=== PATIENT | male | born 1975 | race African-American/Black ===

== ENCOUNTER 2016-12-01 06:34 | Emergency (ER) | payer MEDICAID, OTHER | END 2016-12-01 06:42 | disposition left against medical advice (07) | LOC: FB.ED 06:34 | DX: Z53.21 Procedure and treatment not carried out due to patient leaving prior to being seen by health care provider (principal) | CPT/HCPCS: 99281 ==

== ENCOUNTER 2016-12-14 04:46 | Emergency (ER) | payer SELFPAY ==
[2016-12-14] MEDS ORDERED: Acetaminophen/HYDROcodone 325-5 MG Tab PO ONE (05:09)
[2016-12-14] MEDS ORDERED: Amoxicillin/Clavulanate K 875-125 MG Tab PO ONE (05:10)
[2016-12-14] MEDS ORDERED: NEOMY EARLF STA (05:12)
[2016-12-14] MEDS ORDERED: COLISTIN EARLF STA (05:12)
[2016-12-14] MEDS ORDERED: [UNRECOGNIZED DRUG - OTHER] EARLF STA (05:12)
[2016-12-14] MEDS ORDERED: Hydrocortisone/Neomycin/Polymyxin B Otic Susp 10 ML Bottle ONE (05:17)
--- NOTE | 2016-12-14 05:22 | EDM.PDOC ---
ED HPI ENT - General Chief Complaint: ENT Problem Stated Complaint: TOOTHACHE Time Seen by Provider: 12/14/16 04:50 Source: Reports: Patient, Family History Limitations: Reports: No limitations - History of Present Illness INITIAL COMMENTS - FREE TEXT/NARRATIVE: 41 years b m came to the ed because of left earpain and tootache for several days. Symptom Onset Date: 11/24/16 Symptom Onset Time: 08:00 Timing/Duration: Reports: Week(s): Severity: mild Location: Reports: left Ear Improves with: Reports: None Worsens with: Reports: None Associated symptoms: Reports: denies other symptoms Treatment(s) DIRECTOR WHOLESALE: Reports: Acetaminophen, NSAIDS - Related Data Allergies/ADRs: Allergies Allergy/AdvReac Type Severity Reaction Status Date / Time tramadol Allergy Rash Verified 12/01/16 06:38 Home Meds: Home Meds Naproxen Sodium 550 mg PO Q8HR PRN #20 tablet 04/23/16 [Rx] Amoxicillin/Potassium Clav [Augmentin 875-125 Tablet] 1 each PO BID #20 tablet 12/14/16 [Rx] Hydrocodone/Acetaminophen [Tenmile 5-325 Tablet] 1 each PO Q4H PRN #3 tablet 12/14 [Rx] Past Medical History - Past Health History Medical/Surgical History: Denies Medical/Surgical History HEENT History: Reports: None Cardiovascular History: Reports: None Respiratory History: Reports: None Gastrointestinal History: Reports: None Genitourinary History: Reports: None Musculoskeletal History: Reports: Other (see below) Other Musculoskeletal History: Previous back pain Neurological History: Reports: None Psychiatric History: Reports: None Endocrine/Metabolic History: Reports: None Hematologic History: Reports: None Immunologic History: Reports: None Oncologic (Cancer) History: Reports: None Dermatologic History: Reports: None - Infectious Disease History Infectious Disease History: Reports: None - Past Surgical History Head Surgeries/Procedures: Reports: None Respiratory Surgical History: Reports: None GI Surgical History: Reports: None Male Surgical History: Reports: None Neurological Surgical History: Reports: None Oncologic Surgical History: Reports: None Social & Family History - Family History Family Medical History: Noncontributory - Tobacco Use Smoking Status *Q: Current Every Day Smoker Years of Tobacco use: 25 Packs/Tins Daily: 1 - Caffeine Use Caffeine Use: Reports: None - Alcohol Use Days Per Week of Alcohol Use: 0 Number of Drinks Per Day: 3 Total Drinks Per Week: 0 - Recreational Drug Use Recreational Drug Use: No Drug Use in Last 12 Months: Yes Recreational Drug Type: Reports: Marijuana/Hashish Recreational Drug Use Frequency: Weekly ED ROS ENT - Review of Systems Review Of Systems: See Below Constitutional: Reports: no symptoms HEENT: Reports: Ear discharge, Ear pain, Other (toothache) Respiratory: Reports: No Symptoms Cardiovascular: Reports: No symptoms Endocrine: Reports: no symptoms GI/Abdominal: Reports: No symptoms : Reports: no symptoms Musculoskeletal: Reports: no symptoms Skin: Reports: no symptoms Neurological: Reports: No Symptoms Hematologic/Lymphatic: Reports: no symptoms Immunologic: Reports: no symptoms ED EXAM, ENT - Physical Exam Exam: See Below Exam Limited By: No limitations General Appearance: alert, WD/WN, mild distress Eye Exam: bilateral eye: normal inspection Ears: normal external exam, canal discharge, canal material, canal swelling, TM bulging, TM obscured by cerumen Nose: normal inspection, normal mucousa, no blood Mouth/Throat: Normal inspection, Normal gums, Normal lips Head: atraumatic, normocephalic Neck: normal inspection, supple, non-tender, full range of motion Respiratory/Chest: no respiratory distress, lungs clear, normal breath sounds, no accessory muscle use Cardiovascular: normal peripheral pulses, regular rate, rhythm, no edema GI/Abdominal: normal bowel sounds, soft, non tender, no organomegaly, no distention, no abnormal bruit (Male) Exam: Deferred Rectal (Males) Exam: Deferred Back: normal inspection, full range of motion Extremities: normal inspection, normal range of motion Neurological: alert, oriented, CN II-XII intact, normal cognition Psychiatric: normal affect, normal mood Skin: Warm, Dry, Intact, Normal color Lymphatic: no adenopathy Course - Vital Signs Text/Narrative:: 41 years b m came to the ed because of left earpain and tootache for several days. PE: Poor dentition, left sided EM/OE Impression: OM/OE poor dentition Tx: Cortisporine, Augmentin, Vicodin Reexam: Improved Plan: D/C with instructions Last Recorded V/S: Last Vital Signs Temp 36.4 C 12/14/16 04:50 Pulse 72 12/14/16 04:50 Resp 17 12/14/16 04:50 BP 130/89 12/14/16 04:50 Pulse Ox 100 12/14/16 04:50 - Orders/Labs/Meds Meds: Medications Discontinued Medications Generic Name Dose Route Start Last Admin Trade Name Freq PRN Reason Stop Dose Admin Hydrocodone Bitart/Acetaminophen 1 tab 12/14/16 05:09 12/14/16 05:15 Tenmile 325-5 Mg PO 12/14/16 05:10 1 tab ONETIME ONE Administration Amoxicillin/Clavulanate Potassium 1 tab 12/14/16 05:10 12/14/16 05:14 Augmentin 875 Mg/125 Mg PO 12/14/16 05:11 1 tab ONETIME ONE Administration Hydrocortisone/Neomycin/Colistin 0.1 ml 12/14/16 05:12 Coly-Mycin S Ear Drops EARLF 12/14/16 05:13 ONETIME STA Departure - Departure Time of Disposition: 05:17 Disposition: Home, Self-Care 01 Condition: good Clinical Impression: Otitis media Qualifiers: Otitis media type: suppurative Laterality: left Chronicity: acute Recurrence: recurrent Spontaneous tympanic membrane rupture: without spontaneous rupture Qualified Code(s): H66.005 - Acute suppurative otitis media without spontaneous rupture of ear drum, recurrent, left ear Prescriptions: Amoxicillin/Potassium Clav [Augmentin 875-125 Tablet] 1 each PO BID #20 tablet Hydrocodone/Acetaminophen [Tenmile 5-325 Tablet] 1 each PO Q4H PRN #3 tablet PRN Reason: for severe pain only Referrals: PCP,None [Primary Care Provider] - Forms: ED Department Discharge Additional Instructions: Please f/u with your dentist today, please f/u with your PMD in next 1-3 days. Please came back to the ed if symptoms get worse acutely
[2016-12-14 05:40] VITALS: BP 132/75
== END 2016-12-14 05:30 | disposition home or self-care (01) ==
LOC: FB.ED 04:46
DX: H66.005 Acute suppurative otitis media without spontaneous rupture of ear drum, recurrent, left ear (principal); F17.210 Nicotine dependence, cigarettes, uncomplicated; Z88.8 Allergy status to other drugs, medicaments and biological substances
CPT/HCPCS: 99282; A9270; 99283

== ENCOUNTER 2018-03-12 12:42 | Emergency (ER) | payer BC ==
--- NOTE | 2018-03-12 13:22 | EDM.PDOC ---
ED HPI GENERAL MEDICAL PROBLEM - General Chief Complaint: Gastrointestinal Problem Stated Complaint: VOMITTING BLOOD Time Seen by Provider: 03/12/18 12:42 Source of Information: Reports: Patient History Limitations: Reports: No Limitations - History of Present Illness INITIAL COMMENTS - FREE TEXT/NARRATIVE: 43 y.o.b. male came to the ed after he vomited bright blood while going to work this am. Pt denied ETOH or liver issues, he is in his usual state of health. No N/V/D or any other acute medical issues. BP 113/74 pulse ox 100% RR 18 Temp 37.1 pulse 76 Onset: Today Onset Date: 03/12/18 Onset Time: 08:00 Duration: Hour(s):, Resolved Prior to Arrival Location: Reports: Abdomen Quality: Reports: Dull Severity: Mild Improves with: Reports: None Worsens with: Reports: None Context: Reports: Other (no symptoms now) Associated Symptoms: Reports: No Other Symptoms - Related Data Allergies Allergy/AdvReac Type Severity Reaction Status Date / Time tramadol Allergy Rash Verified 03/12/18 13:19 Home Meds: Home Meds Naproxen Sodium 550 mg PO Q8HR PRN #20 tablet 04/23/16 [Rx] Famotidine [Pepcid] 40 mg PO DAILY #10 tablet 03/12/18 [Rx] Past Medical History - Past Health History Medical/Surgical History: Denies Medical/Surgical History HEENT History: Reports: None Cardiovascular History: Reports: None Respiratory History: Reports: None Gastrointestinal History: Reports: None Genitourinary History: Reports: None Musculoskeletal History: Reports: Other (See Below) Other Musculoskeletal History: Previous back pain Neurological History: Reports: None Psychiatric History: Reports: None Endocrine/Metabolic History: Reports: None Hematologic History: Reports: None Immunologic History: Reports: None Oncologic (Cancer) History: Reports: None Dermatologic History: Reports: None - Infectious Disease History Infectious Disease History: Reports: None - Past Surgical History Head Surgeries/Procedures: Reports: None Respiratory Surgical History: Reports: None GI Surgical History: Reports: None Male Surgical History: Reports: None Neurological Surgical History: Reports: None Oncologic Surgical History: Reports: None Social & Family History - Family History Family Medical History: Noncontributory - Caffeine Use Caffeine Use: Reports: None ED ROS GENERAL - Review of Systems Review Of Systems: See Below Constitutional: Reports: No Symptoms HEENT: Reports: No Symptoms Respiratory: Reports: No Symptoms Cardiovascular: Reports: No Symptoms Endocrine: Reports: No Symptoms GI/Abdominal: Reports: No Symptoms : Reports: No Symptoms Musculoskeletal: Reports: No Symptoms Skin: Reports: No Symptoms Neurological: Reports: No Symptoms Psychiatric: Reports: No Symptoms Hematologic/Lymphatic: Reports: No Symptoms Immunologic: Reports: No Symptoms ED EXAM, GI/ABD - Physical Exam Exam: See Below Exam Limited By: No Limitations General Appearance: Alert, WD/WN, No Apparent Distress Eyes: Bilateral: Normal Appearance Ears: Normal External Exam, Normal Canal, Hearing Grossly Normal, Normal TMs Nose: Normal Inspection, Normal Mucosa, No Blood Throat/Mouth: Normal Inspection, Normal Lips, Normal Teeth, Normal Gums, Normal Oropharynx, Normal Voice, No Airway Compromise, Other (no blood tngered tongue) Head: Atraumatic, Normocephalic Neck: Normal Inspection, Supple, Non-Tender, Full Range of Motion Respiratory/Chest: No Respiratory Distress, Lungs Clear, Normal Breath Sounds, No Accessory Muscle Use, Chest Non-Tender Cardiovascular: Normal Peripheral Pulses, Regular Rate, Rhythm, No Edema, No Gallop, No JVD, No Murmur, No Rub GI/Abdominal Exam: Normal Bowel Sounds, Soft (Male) Exam: Deferred Rectal (Males) Exam: Deferred Back Exam: Normal Inspection, Full Range of Motion Extremities: Normal Inspection, Normal Range of Motion, Non-Tender, No Pedal Edema Neurological: Alert, Oriented, CN II-XII Intact, Normal Cognition, Normal Gait, Normal Reflexes, No Motor/Sensory Deficits Psychiatric: Normal Affect, Normal Mood Skin Exam: Warm, Dry, Intact, Normal Color, No Rash Lymphatic: No Adenopathy Course - Vital Signs Text/Narrative:: 43 y.o.b. male came to the ed after he vomited bright blood while going to work this am. Pt denied ETOH or liver issues, he is in his usual state of health. No N/V/D or any other acute medical issues. BP 113/74 pulse ox 100% RR 18 Temp 37.1 pulse 76 PE: WNWD Black Male Labs: Opioids and Marrijuana positive Impression: Gastritis Tx: Pepcid Reexam: Pt was in in his usual sate of health while here in the ED, Requesting a sick leave for today Plan: D/C with instructions Last Recorded V/S: Last Vital Signs Temp 37.1 C 03/12/18 12:55 Pulse 71 03/12/18 12:55 Resp 16 03/12/18 12:55 BP 113/74 03/12/18 12:55 Pulse Ox 100 03/12/18 12:55 - Orders/Labs/Meds Orders: Active Orders 24 hr Category Date Time Status DRUG SCREEN, URINE ALERE [URCHEM] Stat Lab 03/12/18 13:42 Ordered Labs: Laboratory Tests 03/12/18 03/12/18 03/12/18 Range/Units 13:30 13:30 13:30 WBC 6.1 (4.5-12.0) X10-3/uL RBC 4.78 (4.30-5.75) x10(6)uL Hgb 14.7 (11.5-15.5) g/dL Hct 44.1 (30.0-51.3) % MCV 92.1 (80-96) fL MCH 30.8 (27.7-33.6) pg MCHC 33.4 (32.2-35.4) g/dL RDW 12.5 (11.5-15.5) % Plt Count 196 (125-369) X10(3)uL MPV 8.3 (7.4-10.4) fL Neut % (Auto) 61.9 (46-82) % Lymph % (Auto) 26.2 (13-37) % Emery % (Auto) 9.7 (4-12) % Eos % (Auto) 1 (1.0-5.0) % Baso % (Auto) 1 (0-2) % Neut # (Auto) 3.8 (1.6-8.3) # Lymph # (Auto) 1.6 (0.6-5.0) # Emery # (Auto) 0.6 (0.0-1.3) # Eos # (Auto) 0.1 (0.0-0.8) # Baso # (Auto) 0.0 (0.0-0.2) # Sodium 135 (135-145) mmol/L Potassium 4.2 (3.5-5.3) mmol/L Chloride 102 (100-110) mmol/L Carbon Dioxide 28 (21-32) mmol/L BUN 11 (7-18) mg/dL Creatinine 0.9 (0.70-1.30) mg/dL Est Cr Clr Drug Dosing 98.95 mL/min Estimated GFR (MDRD) > 60 (>60) BUN/Creatinine Ratio 12.2 (9-20) Glucose 96 (80-116) mg/dL Calcium 9.3 (8.6-10.2) mg/dL Total Bilirubin 0.6 (0.1-1.3) mg/dL Direct Bilirubin 0.12 (0.10-0.20) mg/dL AST 49 H (5-25) IU/L ALT 94 H (12-36) U/L Alkaline Phosphatase 90 (56-112) IU/L Total Protein 8.4 H (6.0-8.0) g/dL Albumin 3.7 (3.5-5.2) g/dL Amylase 78 (25-115) U/L Urine Opiates Screen (NEGATIVE) Ur Oxycodone Screen (NEGATIVE) Ur Propoxyphene Screen (NEGATIVE) Ur Barbituates Screen (NEGATIVE) Ur Tricyclics Screen (NEGATIVE) Ur Phencyclidine Scrn (NEGATIVE) Ur Amphetamine Screen (NEGATIVE) Urine MDMA Screen (NEGATIVE) U Benzodiazepines Scrn (NEGATIVE) U Cocaine Metab Screen (NEGATIVE) U Marijuana (THC) Screen (NEGATIVE) 03/12/18 Range/Units 13:42 WBC (4.5-12.0) X10-3/uL RBC (4.30-5.75) x10(6)uL Hgb (11.5-15.5) g/dL Hct (30.0-51.3) % MCV (80-96) fL MCH (27.7-33.6) pg MCHC (32.2-35.4) g/dL RDW (11.5-15.5) % Plt Count (125-369) X10(3)uL MPV (7.4-10.4) fL Neut % (Auto) (46-82) % Lymph % (Auto) (13-37) % Emery % (Auto) (4-12) % Eos % (Auto) (1.0-5.0) % Baso % (Auto) (0-2) % Neut # (Auto) (1.6-8.3) # Lymph # (Auto) (0.6-5.0) # Emery # (Auto) (0.0-1.3) # Eos # (Auto) (0.0-0.8) # Baso # (Auto) (0.0-0.2) # Sodium (135-145) mmol/L Potassium (3.5-5.3) mmol/L Chloride (100-110) mmol/L Carbon Dioxide (21-32) mmol/L BUN (7-18) mg/dL Creatinine (0.70-1.30) mg/dL Est Cr Clr Drug Dosing mL/min Estimated GFR (MDRD) (>60) BUN/Creatinine Ratio (9-20) Glucose (80-116) mg/dL Calcium (8.6-10.2) mg/dL Total Bilirubin (0.1-1.3) mg/dL Direct Bilirubin (0.10-0.20) mg/dL AST (5-25) IU/L ALT (12-36) U/L Alkaline Phosphatase (56-112) IU/L Total Protein (6.0-8.0) g/dL Albumin (3.5-5.2) g/dL Amylase (25-115) U/L Urine Opiates Screen Positive H (NEGATIVE) Ur Oxycodone Screen Negative (NEGATIVE) Ur Propoxyphene Screen Negative (NEGATIVE) Ur Barbituates Screen Negative (NEGATIVE) Ur Tricyclics Screen Negative (NEGATIVE) Ur Phencyclidine Scrn Negative (NEGATIVE) Ur Amphetamine Screen Negative (NEGATIVE) Urine MDMA Screen Negative (NEGATIVE) U Benzodiazepines Scrn Negative (NEGATIVE) U Cocaine Metab Screen Negative (NEGATIVE) U Marijuana (THC) Screen Positive H (NEGATIVE) Meds: Medications Discontinued Medications Generic Name Dose Route Start Last Admin Trade Name Freq PRN Reason Stop Dose Admin Famotidine 20 mg 03/12/18 13:23 03/12/18 13:39 Pepcid PO 03/12/18 13:24 20 mg ONETIME ONE Administration Departure - Departure Time of Disposition: 14:56 Disposition: Home, Self-Care 01 Condition: Good Clinical Impression: Positive urine drug screen Gastritis Qualifiers: Gastritis type: superficial Chronicity: unspecified Gastritis bleeding: with bleeding Qualified Code(s): K29.31 - Chronic superficial gastritis with bleeding - Discharge Information Prescriptions: Famotidine [Pepcid] 40 mg PO DAILY #10 tablet Referrals: PCP,None [Primary Care Provider] - Forms: ED Department Discharge, ED Return to Work/School Form Additional Instructions: Please avoid Marijuana, please take pepsid as recommended, please f/u with your PMD, come back to the ED if your symptoms get worse acutely - My Orders Last 24 Hours: My Active Orders 03/12/18 13:42 DRUG SCREEN, URINE ALERE [URCHEM] Stat - Assessment/Plan Last 24 Hours: My Active Orders 03/12/18 13:42 DRUG SCREEN, URINE ALERE [URCHEM] Stat
[2018-03-12] MEDS ORDERED: Famotidine 20 MG Tab PO ONE (13:23)
[2018-03-12 13:33] VITALS: BP 113/74
== END 2018-03-12 15:03 | disposition home or self-care (01) ==
LOC: FB.ED 12:42
DX: K29.31 Chronic superficial gastritis with bleeding (principal); Z88.6 Allergy status to analgesic agent
CPT/HCPCS: 36415; 80048; 80076; 80305; 82150; 85025; 99284; A9270

== ENCOUNTER 2018-04-30 15:50 | Emergency (ER) | payer MEDICAID, OTHER ==
[2018-04-30] MEDS ORDERED: Ketorolac 30 MG/ML SDV IM ONE (16:29)
[2018-04-30 17:14] VITALS: BP 144/95
--- NOTE | 2018-04-30 23:32 | EDM.PDOC ---
ED HPI GENERAL MEDICAL PROBLEM - General Chief Complaint: Chest Pain Stated Complaint: chest pain Time Seen by Provider: 04/30/18 16:10 Source of Information: Reports: Patient, Significant Other History Limitations: Reports: No Limitations, Other - History of Present Illness Onset: Today Onset Date: 04/30/18 Onset Time: 05:00 Location: Reports: Other (LPOW BACK PAIN) Quality: Reports: Ache, Sharp Severity: Severe Improves with: Reports: None Worsens with: Reports: Movement Associated Symptoms: Reports: No Other Symptoms, Chest Pain (CHEST WALL PAIN IS READILY DEMONSTRATED), Other Rt chest and lower back Pain Score (Numeric/FACES): 10 - Related Data Allergies Allergy/AdvReac Type Severity Reaction Status Date / Time tramadol Allergy Rash Verified 04/30/18 16:13 Home Meds: Home Meds Naproxen Sodium 550 mg PO Q8HR PRN #20 tablet 04/23/16 [Rx] Famotidine [Pepcid] 40 mg PO DAILY #10 tablet 03/12/18 [Rx] Past Medical History - Past Health History Medical/Surgical History: Denies Medical/Surgical History HEENT History: Reports: None Cardiovascular History: Reports: None Respiratory History: Reports: None Gastrointestinal History: Reports: None Genitourinary History: Reports: None Musculoskeletal History: Reports: Back Pain, Chronic, Other (See Below) Other Musculoskeletal History: Previous back pain Neurological History: Reports: None Psychiatric History: Reports: None Endocrine/Metabolic History: Reports: None Hematologic History: Reports: None Immunologic History: Reports: None Oncologic (Cancer) History: Reports: None Dermatologic History: Reports: None - Infectious Disease History Infectious Disease History: Reports: None - Past Surgical History Head Surgeries/Procedures: Reports: None Respiratory Surgical History: Reports: None GI Surgical History: Reports: None Male Surgical History: Reports: None Neurological Surgical History: Reports: None Oncologic Surgical History: Reports: None Social & Family History - Family History Family Medical History: Noncontributory - Tobacco Use Smoking Status *Q: Current Every Day Smoker Years of Tobacco use: 30 Packs/Tins Daily: 1 - Caffeine Use Caffeine Use: Reports: Soda - Recreational Drug Use Recreational Drug Use: No ED ROS GENERAL - Review of Systems Review Of Systems: See Below Constitutional: Reports: No Symptoms HEENT: Reports: No Symptoms Respiratory: Reports: No Symptoms Cardiovascular: Reports: Chest Pain Endocrine: Reports: No Symptoms GI/Abdominal: Reports: No Symptoms : Reports: No Symptoms Musculoskeletal: Reports: Other (HE WAIL LOUDLY THAT HE HAS LOW BACK PAIN AND SEVERE CHEST PAIN WHILE HE IS LAYING DELL POSITIO ) Neurological: Reports: No Symptoms Psychiatric: Reports: No Symptoms Hematologic/Lymphatic: Reports: No Symptoms Immunologic: Reports: No Symptoms ED EXAM, GENERAL - Physical Exam Exam: See Below Free Text/Narrative:: HE IS LAYING IN A RIGHT POSITION, AND EXHIBITS SEVERE ANODYNIA- ANY TOUCH OF INSIGNIFICANCE WITHOUT PRESSURE RESULTS IN A LOUD GROAN OF DISPLEASURE , F ___ WORDS, AND CLAIM OF SEVERE PAIN EVEN WHEN NO STRUCTURE EXPERIENCES ANY PRESSURE ON SUPERFICIAL PALPATION. Exam Limited By: No Limitations General Appearance: Alert, Moderate Distress Eye Exam: Bilateral Eye: Normal Fundi, Normal Inspection, PERRL Ears: Normal External Exam, Normal Canal, Normal TMs Nose: Normal Inspection, Normal Mucosa Throat/Mouth: Normal Inspection, Normal Lips, Normal Teeth, Normal Gums, Normal Oropharynx, Normal Voice, No Airway Compromise Head: Atraumatic Neck: Normal Inspection Respiratory/Chest: No Respiratory Distress Cardiovascular: Normal Peripheral Pulses, Regular Rate, Rhythm, No Edema, No Gallop, No JVD, No Murmur, No Rub, Other (SEVERLY DETESTS MY PALPATING THE LEFT PARATERANADN LEFT COSTOCHONDRAL CHEST WALL WITH VERY LOUD GROANS AND MALE SCREAMS AND F ___ WORDS) Peripheral Pulses: 1+: Brachial (R), Radial (L), Dorsalis Pedis (L), Dorsalis Pedis (R) GI/Abdominal: Normal Bowel Sounds, Soft, Non-Tender, No Organomegaly, No Distention, No Abnormal Bruit, No Mass (Male) Exam: No Hernia, Normal Inspection Back Exam: Normal Inspection, Other (WITH MINIMAL PALPATION PRESSSUREWAILS ABPOUT SEVER LOW AND MID THORACIC WELL LUMBAR PAIN) Extremities: Normal Inspection, Normal Range of Motion, Non-Tender Psychiatric: Other (ANODYNIA AND VERY INAPPROPRIATELY INTOLERANT OF GENTAL PALPATION OF ANY ANTERIOR LEFT CHEST WALL OR MID AND LUMBAR SPINE) Skin Exam: Warm (R ) Course - Vital Signs Last Recorded V/S: Last Vital Signs Temp 37.2 C 04/30/18 16:15 Pulse 80 04/30/18 16:15 Resp 17 04/30/18 16:15 BP 144/95 H 04/30/18 16:15 Pulse Ox 97 04/30/18 16:15 - Orders/Labs/Meds Orders: Active Orders 24 hr Category Date Time Status EKG 12 Lead [EK] Routine Ther 04/30/18 16:26 Ordered Labs: Laboratory Tests 04/30/18 04/30/18 Range/Units 16:35 16:35 Troponin I < 0.017 L (<0.017-0.056) ng/mL C-Reactive Protein 0.2 L (0.5-0.9) mg/dL Meds: Medications Discontinued Medications Generic Name Dose Route Start Last Admin Trade Name Ruth Ann PRN Reason Stop Dose Admin Ketorolac Tromethamine 60 mg 04/30/18 16:29 04/30/18 16:45 Toradol IM 04/30/18 16:30 60 mg ONETIME ONE Administration Departure - Departure Time of Disposition: 16:50 Disposition: Against Medical Advice 07 Condition: Good Clinical Impression: Allodynia, Costochondritis, Thoracic spine pain, Lumbar back pain, Chest wall pain Instructions: Back Pain, Adult Referrals: PCP,None [Primary Care Provider] - Forms: ED Department Discharge Additional Instructions: SOME ONE WILL BE CALLING YOUR FROM [facility] TO HAVE A MRI OF YOUR HEAD COMPLETED EITHER 05/01 OR 05/02/[address] RECINOS, THE NEUROLOGIST FROM [place], SUGGESTED GETTING AN ECHO OF THE HEART I HAVE SPOKEN TO DR AYALA AND HE IS VERY HAPPY TO CALL YOU ABOUT THE RESULT OF THE MRI AND THE ECHO I HAVE SCHEDULED THE ECHO OF THE HEART TAKE ONE BABY ASPIRIN DAILY RETURN TO ED IF YOU HAVE WORSE SYMPTOMS. - My Orders Last 24 Hours: My Active Orders 04/30/18 16:26 EKG 12 Lead [EK] Routine - Assessment/Plan Last 24 Hours: My Active Orders 04/30/18 16:26 EKG 12 Lead [EK] Routine
== END 2018-04-30 16:52 | disposition left against medical advice (07) ==
LOC: FB.ED 15:50
DX: M94.0 Chondrocostal junction syndrome [Tietze] (principal); M54.6 Pain in thoracic spine; M54.5 Low back pain; R07.89 Other chest pain; F17.210 Nicotine dependence, cigarettes, uncomplicated; Z88.5 Allergy status to narcotic agent
CPT/HCPCS: 36415; 84484; 86140; 93005; 99283; J1885

== ENCOUNTER 2018-11-13 13:47 | Emergency (ER) | payer MEDICAID ==
[2018-11-13] MEDS ORDERED: Ketorolac 60 MG/2 ML SDV IM ONE (13:59)
--- NOTE | 2018-11-13 14:01 | EDM.PDOC ---
ED HPI GENERAL MEDICAL PROBLEM - General Stated Complaint: LEFT RIB PAIN Time Seen by Provider: 11/13/18 13:47 Source of Information: Reports: Patient, Family History Limitations: Reports: No Limitations - History of Present Illness INITIAL COMMENTS - FREE TEXT/NARRATIVE: 43 y.o.w. m came to the ed after he woke up with severe left sided chest wall pain with inspiration/expiration, no trauma, no SOB no F/C no other acute medical issues. BP 138/68 Pulse ox 98% on RA, RR 18 Temp 36.8 pulse 88 Onset Date: 11/13/18 Onset Time: 06:00 Duration: Hour(s):, Intermittent Location: Reports: Chest Quality: Reports: Ache, Dull, Throbbing Severity: Moderate Improves with: Reports: Rest Worsens with: Reports: Movement Context: Reports: Other Associated Symptoms: Reports: Cough - Related Data Allergies Allergy/AdvReac Type Severity Reaction Status Date / Time tramadol Allergy Rash Verified 11/13/18 14:12 Home Meds: Home Meds Naproxen Sodium 550 mg PO Q8HR PRN #20 tablet 04/23/16 [Rx] Acetaminophen/HYDROcodone [[place] 325-5 MG] 1 tab PO Q4H PRN #6 tab 11/13/18 [Rx] Past Medical History - Past Health History Medical/Surgical History: Denies Medical/Surgical History HEENT History: Reports: None Cardiovascular History: Reports: None Respiratory History: Reports: None Gastrointestinal History: Reports: None Genitourinary History: Reports: None Musculoskeletal History: Reports: Back Pain, Chronic, Other (See Below) Other Musculoskeletal History: Previous back pain Neurological History: Reports: None Psychiatric History: Reports: None Endocrine/Metabolic History: Reports: None Hematologic History: Reports: None Immunologic History: Reports: None Oncologic (Cancer) History: Reports: None Dermatologic History: Reports: None - Infectious Disease History Infectious Disease History: Reports: None - Past Surgical History Head Surgeries/Procedures: Reports: None Respiratory Surgical History: Reports: None GI Surgical History: Reports: None Male Surgical History: Reports: None Neurological Surgical History: Reports: None Oncologic Surgical History: Reports: None Social & Family History - Family History Family Medical History: Noncontributory - Caffeine Use Caffeine Use: Reports: Soda ED ROS GENERAL - Review of Systems Review Of Systems: See Below Constitutional: Reports: No Symptoms HEENT: Reports: No Symptoms Respiratory: Reports: Pleuritic Chest Pain Cardiovascular: Reports: No Symptoms Endocrine: Reports: No Symptoms GI/Abdominal: Reports: No Symptoms : Reports: No Symptoms Musculoskeletal: Reports: Muscle Pain Skin: Reports: No Symptoms Neurological: Reports: No Symptoms Psychiatric: Reports: No Symptoms Hematologic/Lymphatic: Reports: No Symptoms Immunologic: Reports: No Symptoms ED EXAM, GENERAL - Physical Exam Exam: See Below Exam Limited By: No Limitations General Appearance: Alert, WD/WN, Mild Distress Eye Exam: Bilateral Eye: Normal Inspection Ears: Normal External Exam Ear Exam: Bilateral Ear: Auricle Normal Nose: Normal Inspection Throat/Mouth: Normal Inspection, Normal Lips, Normal Voice, No Airway Compromise Head: Atraumatic, Normocephalic Neck: Normal Inspection, Supple, Non-Tender, Full Range of Motion Respiratory/Chest: No Respiratory Distress, Lungs Clear, Normal Breath Sounds, Other (left chest wall tenderness) Cardiovascular: Normal Peripheral Pulses, Regular Rate, Rhythm, No Edema Peripheral Pulses: 2+: Radial (L) GI/Abdominal: Normal Bowel Sounds, Soft, Non-Tender (Male) Exam: No Hernia Rectal (Males) Exam: Deferred Back Exam: Normal Inspection, Full Range of Motion Extremities: Normal Inspection, Normal Range of Motion, Non-Tender Neurological: Alert, Oriented, CN II-XII Intact Psychiatric: Normal Affect, Normal Mood Skin Exam: Warm, Dry, Intact, Normal Color, No Rash Lymphatic: No Adenopathy Course - Vital Signs Text/Narrative:: 43 y.o.w. m came to the ed after he woke up with severe left sided chest wall pain with inspiration/expiration, no trauma, no SOB no F/C no other acute medical issues. BP 138/68 Pulse ox 98% on RA, RR 18 Temp 36.8 pulse 88 PE: WNWD B M wilt left sided chest wall pleurisy Imaging: CXR: NL. no effusion Impression: Pleurisy without effusion Tx: Toradol, ICE Reexam: Improved Plan: D/C with instructions Last Recorded V/S: Last Vital Signs Temp 36.9 C 11/13/18 14:15 Pulse 88 11/13/18 14:15 Resp 18 11/13/18 14:15 BP 138/68 11/13/18 14:15 Pulse Ox 98 11/13/18 14:15 - Orders/Labs/Meds Orders: Active Orders 24 hr Category Date Time Status Cooling Warming Measures [RC] ASDIRECTED Care 11/13/18 14:00 Active Chest 2V [CR] Stat Exams 11/13/18 14:00 Taken Ice Bag [Ice Therapy] [OM.PC] Routine Oth 11/13/18 14:00 Ordered Meds: Medications Discontinued Medications Generic Name Dose Route Start Last Admin Trade Name Freq PRN Reason Stop Dose Admin Ketorolac Tromethamine 60 mg 11/13/18 13:59 11/13/18 14:15 Toradol IM 11/13/18 14:00 60 mg ONETIME ONE Administration Departure - Departure Time of Disposition: 14:23 Disposition: Home, Self-Care 01 Condition: Good Clinical Impression: Pleurisy without effusion - Discharge Information Prescriptions: Acetaminophen/HYDROcodone [[place] 325-5 MG] 1 tab PO Q4H PRN #6 tab PRN Reason: severe pain only Instructions: Pleurisy, [id number] Referrals: PCP,None [Primary Care Provider] - Forms: ED Department Discharge Additional Instructions: Please apply ICE to the affected area, take motrin for mod pain, norco for severe pain, please f/u, come back if your symptoms get worse acutely. - My Orders Last 24 Hours: My Active Orders 11/13/18 14:00 Cooling Warming Measures [RC] ASDIRECTED Chest 2V [CR] Stat Ice Bag [Ice Therapy] [OM.PC] Routine - Assessment/Plan Last 24 Hours: My Active Orders 11/13/18 14:00 Cooling Warming Measures [RC] ASDIRECTED Chest 2V [CR] Stat Ice Bag [Ice Therapy] [OM.PC] Routine
[2018-11-13 14:26] VITALS: BP 138/68
== END 2018-11-13 14:25 | disposition home or self-care (01) ==
LOC: FB.ED 13:47
DX: R09.1 Pleurisy (principal); Z88.5 Allergy status to narcotic agent
CPT/HCPCS: 71046; 96372; 99284; J1885

== ENCOUNTER 2018-11-26 13:25 | Emergency (ER) | payer SELFPAY ==
[2018-11-26] MEDS ORDERED: Ketorolac 60 MG/2 ML SDV IM STA (13:56)
--- NOTE | 2018-11-26 14:03 | EDM.PDOC ---
ED HPI GENERAL MEDICAL PROBLEM - General Stated Complaint: PLEURSY Time Seen by Provider: 11/26/18 13:25 Source of Information: Reports: Patient, Family History Limitations: Reports: No Limitations - History of Present Illness INITIAL COMMENTS - FREE TEXT/NARRATIVE: 43 y.o.b.m came to the ED due to pleuritic chest pain at his left ant chest wall. Pt was seen by me a few days ago for same when a compete work up was performed, including CXR, which was all neg. Pt says he take Motrin, without help. He refuses another W/U refuses a CXR. No Traum, no F/C no cough. No other acute med issues. BP 141/87 Temp 36.7 RR 17 Pulse ox 100% on RA Pulse 85 Onset Date: 11/25/18 Onset Time: 07:00 Duration: Day(s):, Intermittent Location: Reports: Chest Quality: Reports: Dull, Same as Previous Episode Severity: Moderate Improves with: Reports: Rest Worsens with: Reports: Movement Context: Reports: Sick Contact Associated Symptoms: Reports: Chest Pain (with CW movement) left lower rib Pain Score (Numeric/FACES): 8 - Related Data Allergies Allergy/AdvReac Type Severity Reaction Status Date / Time tramadol Allergy Rash Verified 11/13/18 14:12 Home Meds: Home Meds Naproxen Sodium 550 mg PO Q8HR PRN #20 tablet 04/23/16 [Rx] Acetaminophen/HYDROcodone [[place] 325-5 MG] 1 tab PO Q4H PRN #6 tab 11/13/18 [Rx] Acetaminophen/HYDROcodone [[place] 325-5 MG] 1 tab PO Q6H PRN #4 tablet 11/26/18 [ Rx] Past Medical History - Past Health History Medical/Surgical History: Denies Medical/Surgical History HEENT History: Reports: None Cardiovascular History: Reports: None Respiratory History: Reports: None Gastrointestinal History: Reports: None Genitourinary History: Reports: None Musculoskeletal History: Reports: Back Pain, Chronic, Other (See Below) Other Musculoskeletal History: Previous back pain Neurological History: Reports: None Psychiatric History: Reports: None Endocrine/Metabolic History: Reports: None Hematologic History: Reports: None Immunologic History: Reports: None Oncologic (Cancer) History: Reports: None Dermatologic History: Reports: None - Infectious Disease History Infectious Disease History: Reports: None - Past Surgical History Head Surgeries/Procedures: Reports: None Respiratory Surgical History: Reports: None GI Surgical History: Reports: None Male Surgical History: Reports: None Neurological Surgical History: Reports: None Oncologic Surgical History: Reports: None Social & Family History - Family History Family Medical History: Noncontributory - Caffeine Use Caffeine Use: Reports: Soda ED ROS GENERAL - Review of Systems Review Of Systems: See Below Constitutional: Reports: No Symptoms HEENT: Reports: No Symptoms Respiratory: Reports: Pleuritic Chest Pain Cardiovascular: Reports: No Symptoms Endocrine: Reports: No Symptoms GI/Abdominal: Reports: No Symptoms : Reports: No Symptoms Musculoskeletal: Reports: No Symptoms Skin: Reports: No Symptoms Neurological: Reports: No Symptoms Psychiatric: Reports: No Symptoms Hematologic/Lymphatic: Reports: No Symptoms Immunologic: Reports: No Symptoms ED EXAM, GENERAL - Physical Exam Exam: See Below Exam Limited By: No Limitations General Appearance: Alert, WD/WN, Mild Distress Eye Exam: Bilateral Eye: Normal Inspection Ear Exam: Bilateral Ear: Auricle Normal Nose: Normal Inspection Throat/Mouth: Normal Inspection, Normal Lips, Normal Voice, No Airway Compromise Head: Atraumatic, Normocephalic Neck: Normal Inspection, Supple, Non-Tender, Full Range of Motion Respiratory/Chest: No Respiratory Distress, Lungs Clear, Normal Breath Sounds, Pleural Rub Cardiovascular: Normal Peripheral Pulses, Regular Rate, Rhythm, No Edema, No JVD , No Murmur GI/Abdominal: Normal Bowel Sounds (Male) Exam: Deferred Rectal (Males) Exam: Deferred Back Exam: Normal Inspection, Full Range of Motion Extremities: Normal Inspection, Normal Range of Motion, Non-Tender Neurological: Alert, Oriented, CN II-XII Intact, Normal Cognition, Normal Gait Psychiatric: Normal Affect Skin Exam: Warm, Dry, Intact, Normal Color Lymphatic: No Adenopathy Course - Vital Signs Text/Narrative:: 43 y.o.b.m came to the ED due to pleuritic chest pain at his left ant chest wall. Pt was seen by me a few days ago for same when a compete work up was performed, including CXR, which was all neg. Pt says he take Motrin, without help. He refuses another W/U refuses a CXR. No Traum, no F/C no cough. No other acute med issues. BP 141/87 Temp 36.7 RR 17 Pulse ox 100% on RA Pulse 85 PE: WNWD B Male in NAD, left ant chest wall pain with deep inspiration. Imaging: Refused, had a CXR about 2 weeks ago. Impression: Pleurisy Tx: Toradol, ICE. 4 tabls of norco as a prescription Reexam: Improved Plan: D/C with instructions Last Recorded V/S: Last Vital Signs Temp 36.7 C 11/26/18 13:35 Pulse 83 11/26/18 13:35 Resp 17 11/26/18 13:35 BP 141/87 H 11/26/18 13:35 Pulse Ox 100 11/26/18 13:35 - Orders/Labs/Meds Meds: Medications Discontinued Medications Generic Name Dose Route Start Last Admin Trade Name Freq PRN Reason Stop Dose Admin Ketorolac Tromethamine 60 mg 11/26/18 13:56 11/26/18 14:02 Toradol IM 11/26/18 13:57 60 mg ONETIME STA Administration Departure - Departure Time of Disposition: 14:27 Disposition: Home, Self-Care 01 Condition: Good Clinical Impression: Pleurisy without effusion - Discharge Information Prescriptions: Acetaminophen/HYDROcodone [[place] 325-5 MG] 1 tab PO Q6H PRN #4 tablet PRN Reason: for severe pain only Instructions: Pleurisy Referrals: PCP,None [Primary Care Provider] - Forms: ED Department Discharge Additional Instructions: Please take Motrin or mod pain, [place] for severe pain only, please f/u, come back if your symptoms get worse acutely
[2018-11-26 15:23] VITALS: BP 141/87
== END 2018-11-26 14:40 | disposition home or self-care (01) ==
LOC: FB.ED 13:25
DX: R09.1 Pleurisy (principal); Z88.5 Allergy status to narcotic agent
CPT/HCPCS: 96372; 99283; J1885